=== PATIENT | male | born 1985 | race Caucasian/White ===

== ENCOUNTER 2018-02-16 03:41 | Emergency (ER) | payer BC ==
[2018-02-16 03:56] VITALS: BP 133/85
--- NOTE | 2018-02-16 10:41 | ER ---
REASON FOR EMERGENCY ROOM VISIT: Irregular heart beat. HISTORY OF PRESENT ILLNESS: This 32-year-old man woke up at approximately 2 a.m. this morning with a feeling of fluttering in his chest. He felt that he was experiencing an irregular heart beat. He states that he has had these episodes periodically occurring once every 1-2 days lasting usually only a few seconds over the past 2 weeks. He has had them prior to that, but very infrequently. 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 He has not been suffering from any fatigue or has not been working excessively hard lately. He has no prior history. He has no cardiac history. He has not experienced any short shortness of breath or chest pain with any of these episodes. FAMILY HISTORY: There is no family history of arrhythmias, sudden cardiac , or cardiac disease in general. ALLERGIES: To Augmentin. HOME MEDICATIONS: Reviewed. Please see electronic medical record. They include: 1. Ciclesonide inhaler. 2. Plaquenil 200 mg p.o. daily. 3. Mycophenolate mofetil 500 mg p.o. b.i.d. 4. Sulfamethoxazole/trimethoprim. 5. Methylprednisolone. PAST MEDICAL HISTORY: Significant for history of a hemolytic anemia and an immunodeficiency disorder. He also has history of splenomegaly related to this. He had leukopenia in 2013, for which he underwent a bone marrow biopsy and that was negative. His immunodeficiency disorder was discovered subsequent to that. From that standpoint, he has been stable. It should be noted that he was worked up for sleep apnea and he does not have this. REVIEW OF SYSTEMS: Pertinent positives and negatives as listed in the HPI. PHYSICAL EXAMINATION: GENERAL: Reveals a pleasant, healthy-appearing man who was calm and in no acute distress. He is afebrile. VITAL SIGNS: Blood pressure 133/85, respiratory rate 15, O2 saturations 100% on room air, and heart rate is 60. HEENT: Head is normocephalic. No scleral icterus or conjunctivitis is noted. Oropharynx is normal. NECK: No JVD. No adenopathy. CHEST: Clear to auscultation with no wheezes, rhonchi, or rales and good air exchange bilaterally. CARDIAC: Regular rate without murmur. No rubs were heard. ABDOMEN: Soft, nontender. I cannot detect any splenomegaly, but he is somewhat obese. No tenderness. No palpable masses. EXTREMITIES: Normal pulses, no edema. LABORATORY DATA: A 12-lead EKG was obtained, shows a normal sinus rhythm with no ectopy. IMPRESSION: Palpitations. PLAN: I explained to him that these can be a normal occurrence, but since he has noticed some more lately that a sensible next approach would be a Holter monitor, and he does not have a past history of cardiac disease, nor does he have a family history of any sudden cardiac or cardiac arrhythmia problems, etc. He understands this and agrees with this plan. He will arrange this through his provider who will certainly be able to access his medical record including the EKG here from this emergency department. All questions were answered. ALEJANDRO /[id number]
== END 2018-02-16 04:12 | disposition home or self-care (01) ==
LOC: JD.ED 03:41
DX: R00.2 Palpitations (principal); Z88.8 Allergy status to other drugs, medicaments and biological substances; Z79.899 Other long term (current) drug therapy
CPT/HCPCS: 93005; 93010; 99283; 99284-25

== ENCOUNTER 2019-03-25 13:41 | Emergency (ER) | payer BC ==
[2019-03-25 14:07] VITALS: BP 133/81; PULSE 107
[2019-03-25] MEDS ORDERED: Sodium Chloride 0.9% 1,000 ML IV ONE (16:06)
[2019-03-25] MEDS ORDERED: Sodium Chloride 0.9% 10 ML Syringe FLUSH PRN (16:06)
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
[2019-03-25] MEDS ORDERED: cefTRIAXone 2 GM in Sodium Chloride 0.9% 100 ML IV ONE (19:01)
[2019-03-25] MEDS ORDERED: Acetaminophen 325 MG Tab PO ONE (19:23)
--- NOTE | 2019-03-26 08:33 | CR ---
Chest: Two views of the chest are obtained. Comparison: Prior chest x-ray of 12/02/12. Scattered areas of atelectasis are noted within both lungs. Difficult to exclude small area of pneumonia within the left base and left perihilar region. Findings could also be viral. Heart size is normal. Upper mediastinum is normal. Bony structures are unremarkable. Embolization coils are seen within the upper abdomen. Impression: 1. Areas of atelectasis within both sides of the lung. 2. Difficult to exclude small area of pneumonia within the left lung base and left perihilar region. 3. As mentioned above, findings could be viral in etiology. Diagnostic code #3 Study was dictated in [place] [employer]
== END 2019-03-25 20:30 | disposition home or self-care (01) ==
LOC: JD.ED 13:41
DX: J18.9 Pneumonia, unspecified organism (principal); Z88.0 Allergy status to penicillin; Z88.1 Allergy status to other antibiotic agents
CPT/HCPCS: 36415; 71046; 80053; 83605; 85007; 85027; 85610; 86140; 87040; 87804; 96361; 96365; 99283; A9270; J0696; J7030; J7050

== ENCOUNTER 2021-02-23 09:22 | Emergency (ER) | payer BC ==
[2021-02-23 09:41] VITALS: BP 130/56; PULSE 115
[2021-02-23] MEDS ORDERED: Sodium Chloride 0.9% 10 ML Syringe FLUSH PRN (09:52)
[2021-02-23] MEDS ORDERED: Dextrose 5%-0.9% NaCl 1,000 ML IV SCH (10:00)
[2021-02-23] MEDS ORDERED: Acetaminophen 325 MG Tab PO ONE (10:02)
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
--- NOTE | 2021-02-23 10:43 | CR ---
EXAM: XR CHEST 2 VIEWS LOCATION: [facility] DATE/TIME: 02/23/2021 9:55 AM INDICATION: Shortness of breath. Pneumonia. COMPARISON: 02/20/2021. IMPRESSION: Regions of slightly increased mid to lower lung predominant opacities (left greater than right); correlate for COVID. No pleural effusion or pneumothorax. Normal heart size. Postprocedural coils over the left upper quadrant. SIGNED BY: Jordan Sahu DO 02/23/2021 11:31 AM PETE
[2021-02-23 11:08] LABS: CORONAVIRUS COVID-19 NAA POSITIVE (NEGATIVE)
== END 2021-02-23 13:30 | disposition home or self-care (01) ==
LOC: JD.ED 09:22 → SUPCPDRO 09:22 → JD.ED 13:30
DX: U07.1 COVID-19 (principal); Z88.0 Allergy status to penicillin
CPT/HCPCS: 0241U; 36415; 71046; 80053; 83605; 83735; 85025; 86140; 87040; 99283; A9270; J7042; 99284

== ENCOUNTER 2021-02-26 06:41 | Emergency (ER) | payer BC ==
[2021-02-26 06:55] VITALS: BP 129/85; PULSE 99
[2021-02-26] MEDS ORDERED: Lactated Ringers 1,000 ML IV ONE (07:13)
[2021-02-26] MEDS ORDERED: Alum Hydrox/Mag Hydrox/Simeth 30 ML, Lidocaine 2% 15 ML PO ONE ×2 (07:13)
[2021-02-26] MEDS ORDERED: Famotidine 20 MG Tab PO ONE (07:14)
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
[2021-02-26] MEDS ORDERED: Ondansetron 4 MG/2 ML SDV IVPUSH ONE (07:17)
== END 2021-02-26 08:40 | disposition home or self-care (01) ==
LOC: JD.ED 06:41
DX: R00.2 Palpitations (principal); K21.9 Gastro-esophageal reflux disease without esophagitis; Z88.0 Allergy status to penicillin; Z86.16 Personal history of COVID-19
CPT/HCPCS: 36415; 80053; 83690; 85025; 93005; 96374; 99285-25; A9270-GY; J2405; J7120

== ENCOUNTER 2021-03-05 11:02 | Emergency (ER) | payer BC ==
[2021-03-05] MEDS ORDERED: Sodium Chloride 0.9% 10 ML Syringe FLUSH PRN (11:33)
[2021-03-05] MEDS ORDERED: Sodium Chloride 0.9% 1,000 ML IV ONE (11:42)
[2021-03-05] MEDS ORDERED: REMDESIVIR 200 MG in Sodium Chloride 0.9% 250 ML IV ONE ×2 (13:54→14:45)
[2021-03-05] MEDS ORDERED: Dexamethasone 10 MG/ML SDV IVPUSH ONE (13:54)
[2021-03-05 15:06] VITALS: BP 131/81; PULSE 102
== END 2021-03-05 14:55 ==
LOC: JD.ED 11:02
DX: U07.1 COVID-19 (principal); R09.02 Hypoxemia; Z88.0 Allergy status to penicillin
CPT/HCPCS: 36415; 71045; 80053; 83735; 84484; 85025; 85379; 86140; 93005; 96374; 96375; 99285; J1100; J7030; J7050; 93010